=== PATIENT | female | born 1945 | race Caucasian/White ===

== ENCOUNTER → 2017-03-06 | Outpatient (CLI) | payer MEDICARE ==
--- NOTE | 2017-03-06 23:07 | WWHP ---
DATE OF DICTATION: 03/06/2017 CHIEF COMPLAINT: The patient is here for her routine gynecologic exam and mammogram. HISTORY OF PRESENT ILLNESS: This is a 72-year-old G2, P2 with an LMP of 1996. The patient is without gynecologic complaints and she denies any postmenopausal bleeding. PAST MEDICAL HISTORY: Tachycardia and osteopenia. She used Fosamax for about 3 years in the past. She sees Vidhya Rinaldi for her primary care issues and Dr. Russ is her social services counselor. MEDICATIONS: 1. Corgard 20 mg daily. 2. Multivitamin daily. 3. Calcium supplement daily. 4. Vitamin D3 supplement daily. 5. Vitamin C daily. 6. Fish oil supplement daily. 7. Aspirin 81 mg daily. ALLERGIES: NO KNOWN DRUG ALLERGIES. 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 SOCIAL HISTORY: She denies tobacco and drug use and has 1 to 4 alcoholic drinks per week. She is a and is retired. REVIEW OF SYSTEMS: She has lost 3 pounds over the last year. She denies respiratory, cardiac or GI problems. She denies maltreatment or falling. : She denies any significant problems with urinary leakage. PHYSICAL EXAM: Blood pressure 174/89. Height 5 feet 2 inches. Weight 112 pounds. Temperature 97.7, pulse 70. This is a well-developed, well-nourished white female who is alert and oriented x3, in no acute distress. HEENT is within normal limits. NECK: Supple without mass or thyromegaly. CHEST AND LUNGS: Clear to auscultation. HEART: Regular rate and rhythm. Breasts are without mass or discharge. Axillary exam is negative for adenopathy. BACK: Negative for CVA tenderness. ABDOMEN: Soft, nontender, without palpable masses. PELVIC EXAM: External genitalia reveal moderate atrophy without lesions. Cervix and vagina reveal a grade 2 cystocele with a grade 2 uterine prolapse. There is no significant rectocele noted. There is no unusual discharge. The uterus is midposition, nongravid size and nontender. There are no palpable adnexal masses or tenderness. Rectovaginal exam is negative for mass or tenderness and is negative for occult blood. EXTREMITIES: Nontender. IMPRESSION: 1. A 72-year-old menopausal female with an asymptomatic grade 2 cystocele and grade 2 uterine prolapse and otherwise unremarkable gynecologic exam. 2. Elevated blood pressure. 3. History of osteopenia. PLAN: 1. Pap smear was performed. 2. Self breast examination was discussed. 3. Mammogram will be done today. 4. We discussed her elevated blood pressure. She states it was slightly high when she saw her social services counselor recently. I recommended that she follow up with her primary child care leader, Vidhya Rinaldi, in the near future for the blood pressure. She states she will do this. 5. Osteoporosis prevention was discussed. Will plan on repeating bone density testing in 1 to 2 years. 6. She did receive a flu shot early in the flu season, and she will do this yearly. 7. She will return in one year.
--- NOTE | 2017-03-07 07:38 | MM ---
Reason for exam: screening (asymptomatic). Last mammogram was performed 1 year and 2 months ago. History: Patient is postmenopausal. Family history of breast cancer in aunt. Benign left mammotome panel of the left breast, September 23, 2012. Took estrogen for 9 years. Took progesterone for 9 years. Physical Findings: A clinical breast exam by your physician is recommended on an annual basis and results should be correlated with mammographic findings. MG 3D Screening Mammo W/Cad Bilateral CC and MLO view(s) were taken. Prior study comparison: December 28, 2015, bilateral MG 3d screening mammo w/cad. December 02, 2014, left breast MG work up mamm w CAD LT. November 03, 2014, bilateral MG screening mammo w CAD. There are scattered fibroglandular densities. Finding: There are typically benign vascular, round, diffuse calcifications in both breasts. Previous mammotome biopsy in the left breast. There is a chronic nodularity in the right and left breast. There is no dominant lesion. New skin calcification left breast. ASSESSMENT: Benign, BI-RAD 2 RECOMMENDATION: Routine screening mammogram of both breasts in 1 year.
== END ==
LOC: WWCWWP 11:33
PROVIDERS: ATTEND Obstetrics & Gynecology
DX: Z12.31 Encounter for screening mammogram for malignant neoplasm of breast (principal)
CPT/HCPCS: 77063; G0202

== ENCOUNTER → 2018-06-11 | Outpatient (CLI) | payer MEDICARE ==
[2018-06-11 11:03] VITALS: BP 165/90; PULSE 76; TEMP 97.3; BMI 21.0
--- NOTE | 2018-06-11 11:49 | P.HPOB ---
History of Present Illness H&P Date: 06/11/18 Chief Complaint: The patient is here for her routine gynecologic exam and mammogram. This is a 73-year-old G2 PII within LMP of 1996. The patient is without gynecologic complaints. She denies any symptoms from her cystocele or uterine prolapse. Review of Systems She has gained 3 pounds over the last year. She denies cardiac or G.I. problems. Respiratory: occasional allergy symptoms. She denies maltreatment or problems with falling. : she denies any significant problems with urinary leakage. Past Medical History Additional Past Medical History / Comment(s): Tachycardia and osteopenia. She used Fosamax for 3 years in the past. 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 She has a known cystocele and mild uterine prolapse. History of Any Multi-Drug Resistant Organisms: None Reported Past Surgical History: Breast Surgery (Biopsy), Tubal Ligation Additional Past Surgical History / Comment(s): D&Cs in past. Colonoscopy 2013. Past Psychological History: No Psychological Hx Reported Smoking Status: Former smoker (Quits 1969) Past Alcohol Use History: Occasional (0-3 per week) Past Drug Use History: None Reported Additional History: She is a . She does have a boyfriend but is not sexually active. - Past Family History Father Family Medical History: Myocardial Infarction ([place]) Mother Family Medical History: Myocardial Infarction ([place]) Additional Family Medical History / Comment(s): Osteoporosis. Maternal aunt had breast cancer. Brother(s) Family Medical History: Myocardial Infarction ([place]) Medications and Allergies Home Medications and Allergies Comment(s): The patient also takes one multivitamin daily, calcium supplement daily, vitamin D3 supplement daily, vitamin C daily, fish oil supplement daily, and aspirin 81 mg daily. Home Medications Medication Instructions Recorded Confirmed Type Nadolol [Corgard] 1 tab PO DAILY 06/11/18 06/11/18 History Allergies Allergy/AdvReac Type Severity Reaction Status Date / Time No Known Allergies Allergy Unverified 06/11/18 10:59 Exam Vital Signs Temp Pulse BP 06/11/18 10:59 97.3 F L 76 165/90 Intake and Output 06/10/18 06/11/18 06/11/18 22:59 06:59 14:59 Other: Weight 52.163 kg Height 5'2", BMI 21.0. This is a well-developed well-nourished white female who is alert and oriented times 3 in no acute distress. HEENT: Within normal limits. NECK: Supple without mass or thyromegaly. CHEST AND LUNGS: Clear to auscultation. HEART: Regular rate and rhythm. BREASTS: Are without mass or discharge. AXILLARY EXAM: Negative for adenopathy. BACK: Negative for CVA tenderness. ABDOMEN: Soft, nontender, without palpable masses. PELVIC EXAM: Normal external genitalia with moderate atrophy. Cervix and vagina appear normal with mild to moderate atrophy. There is no unusual discharge. There is a grade 2 uterine prolapse and a grade 2 cystocele at rest. There is minimal change with Valsalva. The uterus is midposition, nongravid size and nontender. There are no palpable adnexal masses or tenderness. RECTAL EXAM: rectovaginal exam is negative for mass or tenderness and is negative for occult blood. EXTREMITIES: Nontender. IMPRESSION: 1. 73-year-old menopausal female with stable asymptomatic grade 2 cystocele and grade 2 uterine prolapse. 2. History of osteopenia status post 3 years use of Fosamax in the past. 3. Elevated blood pressure. PLAN: 1. Pap smear was deferred since she had a normal one last year. 2. Self breast awareness was discussed. 3. Screening mammogram will be done today. 4. Osteoporosis prevention was discussed. We will plan a repeating bone density testing next year. 5. We will continue to follow the uterine prolapse and cystocele conservatively. 6. We have discussed her elevated blood pressure. She does home blood pressure monitoring. She will follow-up with her primary caregiver and nuclear medical tech for blood pressure elevations. 7. She will return in one year.
--- NOTE | 2018-06-12 12:48 | MM ---
Reason for exam: screening (asymptomatic). Last mammogram was performed 1 year and 3 months ago. History: Patient is postmenopausal. Family history of breast cancer in aunt. Benign left mammotome panel of the left breast, September 23, 2012. Took estrogen for 9 years. Took progesterone for 9 years. Physical Findings: A clinical breast exam by your physician is recommended on an annual basis and results should be correlated with mammographic findings. MG 3D Screening Mammo W/Cad Bilateral CC and MLO view(s) were taken. Prior study comparison: March 06, 2017, bilateral MG 3d screening mammo w/cad. December 28, 2015, bilateral MG 3d screening mammo w/cad. The breast tissue is heterogeneously dense. This may lower the sensitivity of mammography. There is no discrete abnormality. No significant changes when compared with prior studies. ASSESSMENT: Negative, BI-RAD 1 RECOMMENDATION: Routine screening mammogram of both breasts in 1 year.
== END | disposition home or self-care (01) ==
LOC: WWCWWP 10:43
PROVIDERS: ATTEND Obstetrics & Gynecology
DX: Z12.31 Encounter for screening mammogram for malignant neoplasm of breast (principal)
CPT/HCPCS: 77063; 77067

== ENCOUNTER → 2023-08-07 | Outpatient (CLI) | payer MEDICARE ==
[2023-08-07 13:21] VITALS: BP 142/90; PULSE 86; RESP 18; TEMP 97.8
--- NOTE | 2023-08-07 14:27 | P.HPOB ---
History of Present Illness H&P Date: 08/07/23 Chief Complaint: The patient is here for her routine gynecologic exam. This is an 78-year-old with an LMP of 1996. The patient is here to reestablish with this office. It is been about 5 years since she was last seen here. She has a known cystocele. She states that bulges has gotten bigger and seems to bulge to the vaginal opening. She says she cannot see the bulge but can touch it. She denies any pain associated with this. She is otherwise without gynecologic complaints. Review of Systems The patient's weight has been stable over the last year. She denies respiratory, cardiac, or G.I. problems. Past Medical History Past Medical History: Atrial Fibrillation, Hypertension Additional Past Medical History / Comment(s): Tachycardia and osteopenia. She used Fosamax for 3 years in the past. 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 She has a known cystocele and uterine prolapse. History of Any Multi-Drug Resistant Organisms: None Reported Past Surgical History: Breast Surgery, Tubal Ligation Additional Past Surgical History / Comment(s): D&Cs in past. Colonoscopy 2019(next after 5yr) Past Psychological History: No Psychological Hx Reported Smoking Status: Former smoker Past Alcohol Use History: Occasional (About 4 per week.) Additional Past Alcohol Use History / Comment(s): Quit smoking in 1969. Past Drug Use History: None Reported Additional History: She is a . She is not sexually active. - Past Family History Father Family Medical History: Myocardial Infarction ([place]) Mother Family Medical History: Myocardial Infarction ([place]) Additional Family Medical History / Comment(s): Osteoporosis. Maternal aunt had breast cancer. Brother(s) Family Medical History: Myocardial Infarction ([place]) Medications and Allergies Home Medications Medication Instructions Recorded Confirmed Type nadoloL [Corgard] 2 tab PO DAILY 06/11/18 08/07/23 History Ascorbic Acid [Vitamin C] 500 mg PO DAILY 08/07/23 08/07/23 History Aspirin 81 mg PO DAILY 08/07/23 08/07/23 History Bimatoprost [Lumigan 0.03% Ophth 1 drop BOTH EYES DAILY 08/07/23 08/07/23 History Soln] Losartan [Cozaar] 50 mg PO DAILY 08/07/23 08/07/23 History Multivitamin [Multivitamins Adult 1 each PO DAILY 08/07/23 08/07/23 History Gummies] [place]-3/Dha/Epa/Fish Oil [Fish Oil 1 each PO DAILY 08/07/23 08/07/23 History 500 mg Softgel] Vitamin D3/Vitamin K2 (Mk4) 1 each PO DAILY 08/07/23 08/07/23 History [Vitamin K2 Plus D3 Tablet] Vitamin E (Dl,Tocopheryl Acet) 1,000 unit PO DAILY 08/07/23 08/07/23 History [Vitamin E (1000 Iu = 450 MG)] Allergies Allergy/AdvReac Type Severity Reaction Status Date / Time No Known Allergies Allergy Unverified 06/11/18 10:59 Exam Vital Signs Temp Pulse Resp BP Pulse Ox 08/07/23 13:17 97.8 F 86 18 142/90 100 Intake and Output 08/06/23 08/07/23 08/07/23 22:59 06:59 14:59 Other: Weight 51.71 kg Height 5 feet 1-1/2 inches, weight 114 pounds, BMI 21.2. This is a well-developed well-nourished white female who is alert and oriented times 3 in no acute distress. HEENT: Within normal limits. NECK: Supple without mass or thyromegaly. CHEST AND LUNGS: Clear to auscultation. HEART: Regular rate and irregularly irregular rhythm. BREASTS: Are without mass or discharge. AXILLARY EXAM: Negative for adenopathy. BACK: Negative for CVA tenderness. ABDOMEN: Soft, nontender, without palpable masses. PELVIC EXAM: Normal external genitalia with moderate atrophy. Cervix and vagina appear normal with moderate atrophy. There is no unusual discharge. There is a grade 2 cystocele at rest that approaches the introitus with Valsalva. The vaginal mucosa overlying the cystocele has no evidence of ulceration or excoriation. The uterus is midposition, small, nongravid size and nontender. There are no palpable adnexal masses or tenderness. RECTAL EXAM: Rectovaginal exam is negative for mass or tenderness and is negative for occult blood. EXTREMITIES: Nontender. IMPRESSION: 1. 78-year-old menopausal female with grade 2-3 cystocele which is minimally symptomatic. 2. History of osteopenia. 3. Irregular heart rhythm consistent with atrial fibrillation, and she is seeing her lap polisher for this. PLAN: 1. Pap smear was performed. I will try to look back at her records to see if she has had adequate screening in the past and if so, and if this Pap smear is negative, we will plan on discontinuing Pap smears. 2. Self breast awareness was discussed with the patient. We have also discussed symptoms associated with inflammatory breast cancer. 3. Screening mammogram was done in [place] through her PCP. This is why the mammogram was not done today. 4. Osteoporosis prevention was discussed. I have stressed the importance of adequate calcium, vitamin D and regular exercise. Recommended amounts of calcium and vitamin D were also discussed. She states she had a bone density test done in [place] and was told it was slightly improved from her previous one. She will try to get me a copy of this. 5. At this time I think her cystocele can be conservatively managed. I recommended she avoid holding urine longer than necessary. She will also avoid repetitive heavy lifting. She was instructed to return if she is having worsening symptoms or problems. 6. She was advised to return in one year for her annual well woman exam and as needed.
== END ==
LOC: WWCWWP 13:01
PROVIDERS: ATTEND Obstetrics & Gynecology
DX: Z01.419 Encounter for gynecological examination (general) (routine) without abnormal findings (principal); I48.91 Unspecified atrial fibrillation; I10 Essential (primary) hypertension; M85.80 Other specified disorders of bone density and structure, unspecified site; N81.10 Cystocele, unspecified; Z78.0 Asymptomatic menopausal state; Z12.31 Encounter for screening mammogram for malignant neoplasm of breast; Z79.899 Other long term (current) drug therapy; Z80.3 Family history of malignant neoplasm of breast; Z87.891 Personal history of nicotine dependence

== ENCOUNTER 2023-10-23 06:22 | Day surgery (SDC) | payer MEDICARE ==
[2023-10-16 08:54] VITALS: BMI 20.5
[2023-10-23] MEDS ORDERED: LACTATED RINGERS 1,000 ML IV ONE (06:50)
[2023-10-23] MEDS ORDERED: PROPOFOL 10 MG/ML 20 ML VIAL IV ONE (07:26)
[2023-10-23] MEDS ORDERED: LIDOCAINE 1% INJ 10MG/ML (20 ML MDV) ONE (07:26)
[2023-10-23] MEDS ORDERED: BENZOCAINE SPRAY 1 CAN TOPICAL ONE (07:30)
[2023-10-23 07:31] VITALS: TEMP 97.1
--- NOTE | 2023-10-23 08:26 | ECHOS ---
STRESS ECHOCARDIOGRAM PROCEDURE: Transesophageal echo. INDICATION: To rule out intracardiac thrombus prior to cardioversion. PROCEDURE NOTE: After obtaining informed consent, transesophageal echocardiogram was performed in left lateral position using an Omniplane probe. Local and IV sedation were obtained by the biofuels operations manager. The patient tolerated the procedure well without any obvious immediate complications. FINDINGS: 1. There is no intracardiac thrombus within the left atrial appendage, left atrium, right atrium, right ventricle, and left ventricle. 2. There is biatrial enlargement. 3. Left ventricle has normal size and systolic function. 4. Right ventricle has normal size and function. 5. Mitral valve appears anatomically normal. There is moderate central mitral regurgitation noted. 6. There is [id number] tricuspid regurgitation noted. Aortic root appears within normal limits. Aortic valve is a 3-leaflet valve. There is no evidence of aortic stenosis or regurgitation. 7. Interatrial septum, there is no evidence of [id number]-fn-merha shunt by color-flow Doppler or [id number] shunt by agitated saline contrast study. CONCLUSIONS: 1. No intracardiac thrombus. 2. Severe biatrial enlargement. 3. Moderate mitral and xtcacjbk-[id number]-[id number] tricuspid regurgitation. 4. Normal LV systolic function. PLAN: Patient will undergo cardioversion. MMODL / IJN: [id number] /
--- NOTE | 2023-10-23 09:19 | PCN ---
PROCEDURE NOTE CARDIOVERSION NOTE: INDICATION: Persistent atrial fibrillation with rapid ventricular rate. PROCEDURE NOTE: After obtaining informed consent, electrical cardioversion was performed using 120 joules of synchronized DC current. The patient converted to sinus rhythm following a single shock. She will be continued on the Eliquis and the Corgard that she is on and I will stop the Cardizem. I will see her back in the office over the next few weeks. MMODL / IJN: [id number] /
[2023-10-23 09:32] VITALS: BP 139/68; PULSE 66; RESP 16
== END 2023-10-23 10:01 | disposition home or self-care (01) ==
LOC: OR 06:22
PROVIDERS: ATTEND Internal Medicine Cardiovascular Disease
DX: I08.2 Rheumatic disorders of both aortic and tricuspid valves (principal); I48.11 Longstanding persistent atrial fibrillation; F10.90 Alcohol use, unspecified, uncomplicated; Z87.891 Personal history of nicotine dependence; Z79.01 Long term (current) use of anticoagulants; Z79.82 Long term (current) use of aspirin; Z79.899 Other long term (current) drug therapy
CPT/HCPCS: 93312; 93320; 93325; 92960; J2001; J2704